=== PATIENT | male | born 1960 | race Caucasian/White ===

== ENCOUNTER 2017-06-14 15:17 | Emergency (ER) | payer SELFPAY ==
[2017-06-14] MEDS ORDERED: 0.9 % SODIUM CHLORIDE 1,000 ML IV ONE (15:25)
[2017-06-14 16:09] LABS: BASOPHILS % 0.6 (0.0-1.5); EOSINOPHILS % 2.2 % (0.0-6.8); MEAN CORPUSCULAR HEMOGLOBIN 28.9 pg (28.0-34.0); MEAN CORPUSCULAR VOLUME 83.3 fl (80.0-100.0); MONOCYTES % 5.4 % (0.0-11.0); NEUTROPHILS # 3.6 # k/uL (1.4-7.7)
[2017-06-14 16:35] LABS: eGFR (African) > 60; eGFR (Non-African) > 60
[2017-06-14] MEDS ORDERED: INSULIN REGULAR, HUMAN 100 UNIT/ML 3ML VIAL IV ONE (16:38)
--- NOTE | 2017-06-14 16:48 | ED Physician Documentation ---
Fall - HISTORIAN Historian: patient, paramedics - HPI Stated Complaint: laceration Chief Complaint: Fall Onset: just prior to arrival Where: other (truck stop) Context: slipped, lost balance Associated Symptoms:: positive LOC Location of Pain/Injury: head Injury to Right Extremity: none Injury to Left Extremity: none Further Comments: yes (57 year old male patient [place] in from truck stop. Patient slipped in shower at the truck stop, hitting the back of his head. Patient states "I can't remember what happened". Patient reports being off his diabetes and hypertensive medications for the past 6 months.) - ROS CONST: no problems NEURO: denies: dizziness, anxiety MS/SKIN/LYMPH: denies: weakness, numbness, neck pain, back pain, ankle swelling , leg swelling EYES/ENT: none CVS/RESP: none GI/: denies: nausea, vomiting - PAST HX Past History: cardiac disease (HTN, HLD, AMI), diabetes Type 2, other (Surgical : CABG, cholecystectomy ) Immunizations: tetanus (1-2 years ago), UTD Allergies/Adverse Reactions: Allergies Allergy/AdvReac Type Severity Reaction Status Date / Time No Known Allergies Allergy Verified 06/14/17 16:17 Home Medications: Ambulatory Orders Medication Instructions Recorded NK [NK] 06/14/17 - SOCIAL HX Smoking History: quit greater than 1 year - FAMILY HX Family History: denies: none - VITAL SIGNS Vital Signs: Vital Signs Temp Pulse Resp BP Pulse Ox 98.2 F 69 22 148/93 97 06/14/17 15:23 06/14/17 16:30 06/14/17 15:23 06/14/17 15:23 06/14/17 16:30 - REVIEWED ASSESSMENTS Nursing Assessment Reviewed: Yes Vitals Reviewed: Yes Progress - Progress Progress: Wound irrigated and evaluated. Laceration in "X" shape from posterior parietal area extending into occipital area. 13 cm x 6 cm with large hematoma. Unable to approximate edges due to large hematoma. Pressure dressing placed. Reviewed CT and lab results with patient, recommend transfer for surgical evaluation of wound and admission after positive LOC. Patient agrees with transfer. [address] Stern in the Er at [facility]. Glucose down to 236 after IV fluids and 10U IV insulin, Ancef 1G given while in ER. ED Results Lab/Radiology - Lab Results Lab Results: Lab Results 06/14/17 06/14/17 06/14/17 15:56 15:56 15:56 WBC 6.10 K/ul K/ul (4.00-12.00) RBC 5.01 M/ul M/ul (3.90-5.20) Hgb 14.5 g/dL g/dL (12.0-18.0) Hct 41.7 % % (37.0-53.0) MCV 83.3 fl fl (80.0-100.0) MCH 28.9 pg pg (28.0-34.0) MCHC 34.7 g/dL g/dL (30.0-36.0) RDW 13.6 % % (11.3-14.3) Plt Count 262 K/mm3 K/mm3 (130-400) Neut % (Auto) 58.9 % % (39.0-79.0) Lymph % (Auto) 31.9 % % (16.0-50.0) Lanier % (Auto) 5.4 % % (0.0-11.0) Eos % (Auto) 2.2 % % (0.0-6.8) Baso % (Auto) 0.6 (0.0-1.5) Neut # (Auto) 3.6 # k/uL # k/uL (1.4-7.7) Lymph # (Auto) 1.9 # k/uL # k/uL (0.6-4.0) Lanier # (Auto) 0.3 # k/uL # k/uL (0.0-0.9) Eos # (Auto) 0.1 # k/uL # k/uL (0.0-0.6) Baso # (Auto) 0.0 # k/uL # k/uL (0.0-0.5) Reactive Lymphs % 1.0 % % (0.0-5.0) Reactive Lymphs # 0.1 # k/uL # k/uL (0.0-0.8) Sodium 129 mmol/L L mmol/L (136-145) Potassium 4.0 mmol/L mmol/L (3.5-5.1) Chloride 97 mmol/L L mmol/L (98-107) Carbon Dioxide 22 mmol/L mmol/L (22-30) BUN 14 mg/dL mg/dL (9-20) Creatinine 0.80 mg/dL mg/dL (0.66-1.25) Estimated Creat Clear 148 Est GFR ( Amer) > 60 (60 - ) Est GFR (Non-Af Amer) > 60 (60 - ) Glucose 478 mg/dL H mg/dL (74-106) Calcium 8.9 mg/dL mg/dL (8.4-10.2) Total Bilirubin 0.3 mg/dL mg/dL (0.2-1.3) AST 13 U/L L U/L (15-46) ALT 29 U/L U/L (13-69) Alkaline Phosphatase 75 U/L U/L (38-126) Troponin I < 0.03 ng/mL L ng/mL (0.03-0.06) Total Protein 6.9 g/dL g/dL (6.3-8.2) Albumin 3.6 g/dL g/dL (3.5-5.0) - Radiology Radiology Impressions: CLINICAL HISTORY: FALL, LOC, LACERATION ON POSTERIOR ASPECT OF THE HEAD (Hx) / FALL, LOC, LACERATION (DICOM Hx) TECHNIQUE: 5 mm contiguous axial images of the brain, noncontrast. FINDINGS: There is no evidence of intracranial mass effect, hemorrhage, or acute hydrocephalus. The lateral ventricles are symmetrical and the 4th ventricle is midline without shift. No acute brain parenchymal changes or extra-axial fluid collections are identified. The posterior fossa contents are within normal limits. The calvarium is intact. The visualized sinuses and mastoid air cells are clear. Right posterior scalp hematoma noted. IMPRESSION: No acute intracranial process. Posterior scalp hematoma. TECHNIQUE: 3 mm contiguous axial images of the cervical spine with sagittal and coronal reconstructions. FINDINGS: The cervical spine alignment is normal. The cervical vertebral bodies are of normal height and the intervertebral disc spaces are of average width. The cervical vertebral bodies and posterior elements are intact. The spinal canal diameter is normal. There is no evidence of acute fracture or subluxation. The facets are in proper relationship bilaterally. The craniocervical and cervicothoracic junctions are normal. IMPRESSION: No evidence of acute cervical spine fracture or subluxation. Electronically signed on Jun 14, 2017 5:58:13 PM CUTTER GRINDER by: Raudel Rick - Orders Orders: ED Orders Category Date Time Status Continuous EKG monitoring Q30M Care 06/14/17 15:23 Active Continuous Pulse Oximetry Q30M Care 06/14/17 15:[address] IV Lock 1T Care 06/14/17 15:[address] BRAIN W/O CONTRAST Stat Exams 06/14/17 Taken CBC/PLATELET/DIFF Stat Lab 06/14/17 15:56 Completed CMP Stat Lab 06/14/17 15:56 Completed TROPONIN I (cTnI) Stat Lab 06/14/17 15:56 Completed UA W/MICRO IF INDICATED Stat Lab 06/14/17 15:25 Ordered 0.9 % Sodium Chloride [Normal Saline] 1,000 ml Med 06/14/17 15:25 Discontinued IV NOW Insulin Regular, Human [Humulin R] Med 06/14/17 16:38 Discontinued 10 unit IV NOW ONE EKG WITH COMPARISON Stat Ther 06/14/17 15:23 Ordered Fall Physical Exam - Physical Exam General Appearance: moderate distress Head: trauma (parietal and occipital area. Pressure dressing by EMS) Eye: JACKSON, EOMI, lids & conjunct. nml ENT: nml external inspection, no dental injury, no oral injury (c/o right jaw pain), airway nml Resp/CVS: chest non-tender, no ecchymosis, breath sounds nml, no resp. distress , heart sounds nml Abdomen: soft, no organomegaly, normal bowel sounds, no abdominal bruit, no distension Neuro: oriented x3, CN's nml as tested, sensation nml, motor nml, mood/affect nml, furnace tapper nml, reflexes nml, furnace tapper symmetrical Skin: no rash, pallor, nml palp., dry, other (scalp laceration - 13 cm x 6 cm with large hematoma.) Back: normal inspection, no CVA tenderness, no vertebral tenderness Extremities: atraumatic, pelvis stable, hips non-tender, no pedal edema, nml ROM , nml color/temp, other (left leg - c/o muscle cramps) - Sophia Coma Score Eyes Open: Spontaneous Speech: Oriented Motor: Obeys Commands Discharge Clincal Impression: Fall, Laceration of scalp with complication, Hyperglycemia, LOC (loss of consciousness), Non compliance w medication regimen Condition: Stable Disposition: XFER SHT-TRM HOSP Decision to Admit: NO Decision Time: 18:14
[2017-06-14 16:59] LABS: APPEARANCE,URINE Clear (CLEAR); COLOR,URINE Yellow (YELLOW); OCCULT BLOOD,URINE Negative (NEGATIVE); UROBILINOGEN URINE 0.2 Eu (0.2-1.0)
[2017-06-14] MEDS ORDERED: ceFAZolin SODIUM 1 GM VIAL IV ONE (17:06)
[2017-06-14] MEDS ORDERED: 0.9 % SODIUM CHLORIDE 100 ML IV ONE (17:23)
[2017-06-14 18:37] VITALS: BP 149/76
--- NOTE | 2017-06-14 22:59 | Diagnostic Imaging Report ---
REZA WHITAKER (AILYN) - ER [facility] [address] [facility] [address] [place], [place]. [address] Report Submission Date: Jun 14, 2017 5:58:13 PM AUTO GARAGE ATTENDANT Patient Study Name: ELEANOR SINGH Date: Jun 14, 2017 5:23:38 PM AUTO GARAGE ATTENDANT Modality Type: CT\SR Gender: M Description: CT C-SPINE W/O CONTRAS : 58 Institution: [facility] Physician: REZA WHITAKER) - ER CT cervical spine. CLINICAL HISTORY: FALL, LACERATION ON POSTERIOR ASPECT OF HEAD (Hx) / FALL ( DICOM Hx) TECHNIQUE: 3 mm contiguous axial images of the cervical spine with sagittal and coronal reconstructions. FINDINGS: The cervical spine alignment is normal. The cervical vertebral bodies are of normal height and the intervertebral disc spaces are of average width. The cervical vertebral bodies and posterior elements are intact. The spinal canal diameter is normal. There is no evidence of acute fracture or subluxation. The facets are in proper relationship bilaterally. The craniocervical and cervicothoracic junctions are normal. IMPRESSION: No evidence of acute cervical spine fracture or subluxation. Electronically signed on Jun 14, 2017 5:58:13 PM AUTO GARAGE ATTENDANT by: Raudel GARSIA
--- NOTE | 2017-06-14 22:59 | Diagnostic Imaging Report ---
REZA WHITAKER (AILYN) - ER [facility] [address] [facility] [address] [place], [place]. [address] Report Submission Date: Jun 14, 2017 4:42:54 PM MECHATRONICS TECHNOLOGIST Patient Study Name: ELEANOR SINGH Date: Jun 14, 2017 4:15:03 PM MECHATRONICS TECHNOLOGIST Modality Type: CT\SR Gender: M Description: CT BRAIN W/O CONTRAST : 58 Institution: [facility] Physician: REZA WHITAKER) - ER CT brain noncontrast CLINICAL HISTORY: FALL, LOC, LACERATION ON POSTERIOR ASPECT OF THE HEAD (Hx) / FALL, LOC, LACERATION (DICOM Hx) TECHNIQUE: 5 mm contiguous axial images of the brain, noncontrast. FINDINGS: There is no evidence of intracranial mass effect, hemorrhage, or acute hydrocephalus. The lateral ventricles are symmetrical and the 4th ventricle is midline without shift. No acute brain parenchymal changes or extra-axial fluid collections are identified. The posterior fossa contents are within normal limits. The calvarium is intact. The visualized sinuses and mastoid air cells are clear. Right posterior scalp hematoma noted. IMPRESSION: No acute intracranial process. Posterior scalp hematoma. Electronically signed on Jun 14, 2017 4:42:54 PM MECHATRONICS TECHNOLOGIST by: Raudel GARSIA
[2017-06-16 08:20] LABS: ABG BASE EXCESS -1.8 (-2 - +2); ABG PH 7.42 (7.35-7.45)
== END 2017-06-14 18:30 | disposition short-term general hospital (02) ==
LOC: ED 15:17
DX: S01.01XA Laceration without foreign body of scalp, initial encounter (principal); S06.309A Unspecified focal traumatic brain injury with loss of consciousness of unspecified duration, initial encounter; W19.XXXA Unspecified fall, initial encounter; Y93.9 Activity, unspecified; Y99.9 Unspecified external cause status; R73.9 Hyperglycemia, unspecified
CPT/HCPCS: 36600; 70450; 72125; 80053; 81002; 82803; 84484; 85025; 96361; 96374; 99284; J0690; J1815; J7030; S1016